=== PATIENT | female | born 1980 | race African-American/Black ===

== ENCOUNTER 2019-04-11 21:53 | Emergency (ER) | payer MEDICAID ==
[~2019-04-11] VITALS: Ht 167.6 cm; Wt 116.6 kg
[2019-04-11 22:06] VITALS: Ht 167.6 cm; Wt 116.6 kg
[2019-04-12 00:04] LABS: BASOPHIL % 0.9 % (0-2); PLATELET COUNT 295 x10^3mcL (130-400)
[2019-04-12 00:11] LABS: CALCIUM 9.1 mg/dL (8.5-10.1); CARBON DIOXIDE 26.4 mmol/L (21-32); CHLORIDE SERUM 105 mmol/L (98-107); CREATININE SERUM 0.9 mg/dL (0.6-1.0); GFR1 > 60 mL/min; GLUCOSE SERUM 90 mg/dL (74-106); POTASSIUM SERUM 3.8 mmol/L (3.5-5.1); SODIUM SERUM 136 mmol/L (136-145)
[2019-04-12 00:24] LABS: ALBUMIN 3.8 g/dL (3.4-5.0); ALKALINE PHOSPHATASE 63 U/L (46-116); ALT/SGPT 28 U/L (14-59); AST/SGOT 26 U/L (15-37); BILIRUBIN TOTAL 0.3 mg/dL (0.20-1.00); FREE T4 0.77 ng/dL (0.76-1.46); TOTAL PROTEIN, SERUM 8.5 g/dL (6.4-8.2)
[2019-04-12 02:59] VITALS: BP 195/121
== END 2019-04-12 02:59 | disposition home or self-care (01) ==
LOC: ED 21:53
PROVIDERS: Emergency Medicine
DX: F41.0 Panic disorder [episodic paroxysmal anxiety] (principal); I10 Essential (primary) hypertension
CPT/HCPCS: 36415; 84439; Q0092